=== PATIENT | female | born 1945 | race Caucasian/White ===

== ENCOUNTER 2018-11-24 13:06 | Emergency (ER) | payer OTHER ==
[2018-11-24 16:09] LABS: ADD MAN DIFF? NO
[2018-11-24 16:11] LABS: BASOPHILS % 0.4 % (0.0-2.0); EOSINOPHILS % 0.4 % (0.0-7.0); HEMATOCRIT 44.7 % (37.0-47.0); HEMOGLOBIN 14.4 g/dl (12.0-16.0); LYMPHOCYTES # 1.1 10^3/ul (0.8-2.9); LYMPHOCYTES % 23.1 % (15.0-51.0); MEAN CORPUSCULAR HEMOGLOBIN 28.2 pg (29.0-33.0); MEAN CORPUSCULAR HGB CONC 32.2 g/dl (32.0-37.0); MEAN CORPUSCULAR VOLUME 87.5 fl (82.0-101.0); MEAN PLATELET VOLUME 9.6 fl (7.4-10.4); MONOCYTE # 0.5 10^3/ul (0.3-0.9); MONOCYTES % 9.7 % (0.0-11.0); NEUTROPHIL # 3.1 10^3/ul (1.6-7.5); NEUTROPHILS % 65.8 % (39.0-77.0); PLATELET COUNT 188 10^3/UL (140-415); RED BLOOD COUNT 5.11 10^6/ul (4.20-5.40); RED CELL DISTRIBUTION WIDTH 14.8 % (11.5-14.5)
[2018-11-24 16:11] LABS: WHITE BLOOD COUNT 4.7 10^3/ul (4.8-10.8)
[2018-11-24] MEDS: ONDANSETRON 4 MG INJ IV (16:22)
[2018-11-24] MEDS: OXYCODONE/ACETAMINOPHEN (5/325) TAB PO (16:22)
[2018-11-24] MEDS: SOD CHLORIDE 0.9% 1,000 ML IV (16:23)
[2018-11-24 16:29] LABS: ALANINE AMINOTRANSFERASE 146 IU/L (13-69); ALBUMIN 3.8 g/dl (3.3-4.9); ALBUMIN/GLOBULIN RATIO 1.52; ALKALINE PHOSPHATASE 129 IU/L (42-121); ANION GAP 11 (5-13); ASPARTATE AMINO TRANSFERASE 64 IU/L (15-46); BILIRUBIN,INDIRECT 0.5 mg/dl (0-1.1); BILIRUBIN,TOTAL 0.5 mg/dl (0.2-1.3); BLOOD UREA NITROGEN 22 mg/dl (7-20); CALCIUM 9.3 mg/dl (8.4-10.2); CARBON DIOXIDE 29 mmol/L (21-31); CHLORIDE 97 mmol/L (97-110); CREATININE 0.62 mg/dl (0.44-1.00); LIPASE 100 U/L (23-300); SODIUM 137 mmol/L (135-144); TOTAL PROTEIN 6.3 g/dl (6.1-8.1)
[2018-11-24 16:30] LABS: INR 0.93; PROTIME 12.6 Sec (11.9-14.9)
[2018-11-24 16:31] LABS: GLUCOSE 411 mg/dl (70-220); PARTIAL THROMBOPLASTIN TIME 24.2 Sec (23.0-35.0)
[2018-11-24 16:40] LABS: TROPONIN-I < 0.012 ng/ml (0.000-0.120)
[2018-11-24 17:09] LABS: ADD UMIC YES; UR ASCORBIC ACID NEGATIVE (NEGATIVE); UR BILIRUBIN (Dip) NEGATIVE (NEGATIVE); UR BLOOD (Dip) 1+ mg/dL (NEGATIVE); UR CLARITY CLEAR (CLEAR); UR COLOR YELLOW (YELLOW); UR GLUCOSE (Dip) 3+ mg/dL (NEGATIVE); UR KETONES (Dip) TRACE mg/dL (NEGATIVE); UR LEUKOCYTE ESTERASE (Dip) NEGATIVE Leu/ul (NEGATIVE); UR NITRITE (Dip) NEGATIVE (NEGATIVE); UR RBC 3 /HPF (0-5); UR SPECIFIC GRAVITY (Dip) 1.032 (1.003-1.030); UR TOTAL PROTEIN (Dip) NEGATIVE (NEGATIVE); UR UROBILINOGEN (Dip) NEGATIVE (NEGATIVE); UR WBC 1 /HPF (0-5)
[2018-11-24] MEDS: INSULIN LISPRO 100 UNIT/ML VIAL SC (17:13)
== END 2018-11-24 21:33 | disposition short-term general hospital (02) ==
LOC: E/R 21:33
DX: E11.65 Type 2 diabetes mellitus with hyperglycemia (principal); R32 Unspecified urinary incontinence; D32.9 Benign neoplasm of meninges, unspecified; G93.40 Encephalopathy, unspecified; R40.2142 Coma scale, eyes open, spontaneous, at arrival to emergency department; R40.2252 Coma scale, best verbal response, oriented, at arrival to emergency department; R40.2362 Coma scale, best motor response, obeys commands, at arrival to emergency department; I10 Essential (primary) hypertension; E66.9 Obesity, unspecified; R06.02 Shortness of breath; R93.0 Abnormal findings on diagnostic imaging of skull and head, not elsewhere classified
CPT/HCPCS: 36415; 70450; 71045; 80053; 81001; 82962; 83690; 84484; 85025; 85610; 85730; 87086; 93005; 96372; 99285-25

== ENCOUNTER 2018-12-04 05:44 | Inpatient (IN) | payer OTHER ==
[2018-12-04 06:27] LABS: ADD MAN DIFF? NO
[2018-12-04 06:33] LABS: BASOPHILS % 0.4 % (0.0-2.0); EOSINOPHILS # 0.1 10^3/ul (0.0-0.5); HEMATOCRIT 41.6 % (37.0-47.0); HEMOGLOBIN 13.9 g/dl (12.0-16.0); LYMPHOCYTES # 1.5 10^3/ul (0.8-2.9); LYMPHOCYTES % 28.9 % (15.0-51.0); MEAN CORPUSCULAR HEMOGLOBIN 28.8 pg (29.0-33.0); MEAN CORPUSCULAR HGB CONC 33.4 g/dl (32.0-37.0); MEAN CORPUSCULAR VOLUME 86.1 fl (82.0-101.0); MEAN PLATELET VOLUME 9.8 fl (7.4-10.4); MONOCYTE # 0.7 10^3/ul (0.3-0.9); MONOCYTES % 12.7 % (0.0-11.0); PLATELET COUNT 278 10^3/UL (140-415); RED BLOOD COUNT 4.83 10^6/ul (4.20-5.40); RED CELL DISTRIBUTION WIDTH 14.9 % (11.5-14.5)
[2018-12-04 06:33] LABS: WHITE BLOOD COUNT 5.3 10^3/ul (4.8-10.8)
[2018-12-04 06:47] LABS: PROTIME 12.3 Sec (11.9-14.9)
[2018-12-04 06:48] LABS: PARTIAL THROMBOPLASTIN TIME 26.3 Sec (23.0-35.0)
[2018-12-04 06:50] LABS: ANION GAP 8 (5-13); BLOOD UREA NITROGEN 15 mg/dl (7-20); CALCIUM 9.8 mg/dl (8.4-10.2); CARBON DIOXIDE 34 mmol/L (21-31); CHLORIDE 97 mmol/L (97-110); CREATININE 0.69 mg/dl (0.44-1.00); GLUCOSE 200 mg/dl (70-220); POTASSIUM 3.8 mmol/L (3.5-5.1); SODIUM 139 mmol/L (135-144)
[2018-12-04] MEDS ORDERED: SEVOFLURANE 15 MIN (07:00)
[2018-12-04] MEDS ORDERED: CEFAZOLIN 1 GM INJ ×2 (07:00→14:36)
[2018-12-04] MEDS ORDERED: BUPIVACAINE 0.5% (SDV) 30 ML INJ (07:37)
[2018-12-04] MEDS ORDERED: SODIUM CL BACTERIOSTATIC 30 ML INJ (07:37)
[2018-12-04] MEDS ORDERED: POLYMYXIN/BACITRACIN 1L IRRIG (07:38)
[2018-12-04] MEDS ORDERED: MIDAZOLAM 1 MG/ML 2 ML INJ (07:56)
[2018-12-04] MEDS ORDERED: HEPARIN 1000 UNITS/ML 10 ML INJ (08:10)
[2018-12-04] MEDS ORDERED: MANNITOL 20% 250 ML IV (09:30)
[2018-12-04] MEDS ORDERED: FUROSEMIDE 20 MG INJ (10:30)
[2018-12-04] MEDS ORDERED: DEXAMETHASONE 4 MG/ML 5 ML INJ (10:30)
[2018-12-04] MEDS: SURGIFOAM POWDER 1 GM KIT (11:12)
[2018-12-04] MEDS: HEMOSTATIC MATRIX SYG ZFS ×2 (11:55→15:22)
[2018-12-04] MEDS ORDERED: THROMBIN 5000 UNIT VIAL (13:31)
[2018-12-04] MEDS: NEOMYC/POLYMYX/BACIT 30 GM OINT (15:21)
[2018-12-04] MEDS: POVIDONE IODINE 10% 28.4 GM OINT (15:22)
[2018-12-04] MEDS: BUPIVACAINE 0.5%/EPI (SDV) 30 ML INJ (15:22)
[2018-12-04] MEDS: LIDOCAINE 1% (MPF) 30 ML INJ (15:22)
[2018-12-04] MEDS: THROMBIN 5000 UNIT VIAL ×2 (15:22)
[2018-12-04] MEDS: CEFAZOLIN 1 GM INJ (15:22)
[2018-12-04] MEDS: GELATIN SIZE 100 SPONGE ×2 (15:22)
[2018-12-04] MEDS ORDERED: LIDOCAINE 2% (SDV) 5 ML INJ (15:37)
[2018-12-04] MEDS ORDERED: ETOMIDATE 20 MG INJ (15:37)
[2018-12-04] MEDS ORDERED: ROCURONIUM 50 MG INJ (15:38)
[2018-12-04] MEDS ORDERED: GLYCOPYRROLATE 0.4 MG INJ (15:38)
[2018-12-04] MEDS ORDERED: NEOSTIGMINE 3 MG/3 ML SYRINGE (15:38)
[2018-12-04] MEDS ORDERED: ONDANSETRON 4 MG INJ (15:43)
[2018-12-04] MEDS ORDERED: HYDROCODONE/APAP (5/325) TAB PO (16:00)
[2018-12-04] MEDS ORDERED: LEVETIRACETAM 500 MG (PMX) 100 ML IVPB (16:00)
[2018-12-04] MEDS ORDERED: HYDROmorphONE 0.5 MG/0.5 ML SYG IV (16:00)
[2018-12-04] MEDS ORDERED: traMADol 50 MG TAB PO (16:00)
[2018-12-04] MEDS ORDERED: BISACODYL 10 MG SUPP PR (16:00)
[2018-12-04] MEDS ORDERED: NALOXONE (0.4 MG/ML) INJ IV (16:00)
[2018-12-04] MEDS ORDERED: ONDANSETRON 4 MG INJ IV ×2 (16:00→16:30)
[2018-12-04] MEDS ORDERED: morphine (1 MG/ML) 10ML SYRINGE IV ×2 (16:30)
[2018-12-04] MEDS ORDERED: DIPHENHYDRAMINE 50 MG INJ IV (16:30)
[2018-12-04] MEDS ORDERED: MIDAZOLAM 1 MG/ML 2 ML INJ IV (16:30)
[2018-12-04] MEDS ORDERED: hydrALAzine 20 MG INJ IV (16:30)
[2018-12-04] MEDS ORDERED: LABETALOL HCL 20MG INJ IV (16:30)
[2018-12-04] MEDS ORDERED: METOCLOPRAMIDE 10 MG INJ IV (16:30)
[2018-12-04] MEDS ORDERED: MEPERIDINE 25 MG INJ IV (16:30)
[2018-12-04] MEDS: DEXAMETHASONE 4 MG/ML 1 ML INJ IV ×2 (17:19→23:41)
[2018-12-04] MEDS ORDERED: GLUCOSE GEL 15 GRAM TUBE PO ×2 (18:00)
[2018-12-04] MEDS ORDERED: DEXTROSE 50% 50 ML SYRINGE IV ×2 (18:00)
[2018-12-04] MEDS ORDERED: GLUCAGON 1 MG INJ IM (18:00)
[2018-12-04] MEDS ORDERED: GLUCOSE GEL 15 GRAM TUBE BUCCAL (18:00)
[2018-12-04] MEDS: NS + KCL 20 MEQ 1,000 ML IV (18:20)
[2018-12-04] MEDS: ATORVASTATIN 40 MG TAB PO (20:54)
[2018-12-04] MEDS: LEVETIRACETAM IV 250 MG in DEXTROSE 5% 100 ML IV (20:54)
[2018-12-04] MEDS: DOCUSATE SODIUM 100 MG CAP PO (20:54)
[2018-12-04] MEDS ORDERED: LEVETIRACETAM IV 750 MG in DEXTROSE 5% 100 ML IVPB (21:00)
[2018-12-04] MEDS: NEOMYC/POLYMYX/BACIT 30 GM OINT TOP (21:00)
[2018-12-04] MEDS: INSULIN ASPART [NOVOLOG] 3 ML PEN SC (21:01)
[2018-12-04] MEDS: INSULIN GLARGINE [LANTus] (100 UNITS/ML) SYG SC (21:03)
[2018-12-04] MEDS: CEFAZOLIN 1 GM/50 ML (PMX) 50 ML IVPB (21:26)
[2018-12-05] MEDS: NS + KCL 20 MEQ 1,000 ML IV (03:00)
[2018-12-05 05:24] LABS: ADD MAN DIFF? NO
[2018-12-05 05:30] LABS: BASOPHILS % 0.1 % (0.0-2.0); HEMATOCRIT 35.9 % (37.0-47.0); HEMOGLOBIN 11.6 g/dl (12.0-16.0); LYMPHOCYTES # 0.7 10^3/ul (0.8-2.9); MEAN CORPUSCULAR HEMOGLOBIN 28.2 pg (29.0-33.0); MEAN CORPUSCULAR HGB CONC 32.3 g/dl (32.0-37.0); MEAN CORPUSCULAR VOLUME 87.1 fl (82.0-101.0); MEAN PLATELET VOLUME 10.4 fl (7.4-10.4); MONOCYTE # 0.6 10^3/ul (0.3-0.9); MONOCYTES % 7.1 % (0.0-11.0); NEUTROPHIL # 7.1 10^3/ul (1.6-7.5); NEUTROPHILS % 84.4 % (39.0-77.0); PLATELET COUNT 209 10^3/UL (140-415); RED BLOOD COUNT 4.12 10^6/ul (4.20-5.40)
[2018-12-05 05:30] LABS: WHITE BLOOD COUNT 8.5 10^3/ul (4.8-10.8)
[2018-12-05] MEDS: PANTOPRAZOLE 40 MG INJ IV (05:54)
[2018-12-05] MEDS: DEXAMETHASONE 4 MG/ML 1 ML INJ IV ×3 (05:54→18:34)
[2018-12-05] MEDS: CEFAZOLIN 1 GM/50 ML (PMX) 50 ML IVPB ×3 (05:55→20:45)
[2018-12-05 05:56] LABS: ANION GAP 5 (5-13); BLOOD UREA NITROGEN 10 mg/dl (7-20); CALCIUM 8.1 mg/dl (8.4-10.2); CARBON DIOXIDE 28 mmol/L (21-31); CHLORIDE 106 mmol/L (97-110); CREATININE 0.57 mg/dl (0.44-1.00); GLUCOSE 268 mg/dl (70-220); POTASSIUM 3.5 mmol/L (3.5-5.1); SODIUM 139 mmol/L (135-144)
[2018-12-05] MEDS: INSULIN ASPART [NOVOLOG] 3 ML PEN SC ×4 (07:51→20:41)
[2018-12-05] MEDS: ACETAMINOPHEN 325 MG TAB PO (08:05)
[2018-12-05] MEDS: LOSARTAN 50 MG TAB PO (08:05)
[2018-12-05] MEDS: HYDROCHLOROTHIAZIDE 12.5 MG CAP PO (08:05)
[2018-12-05] MEDS: DOCUSATE SODIUM 100 MG CAP PO ×2 (08:06→20:35)
[2018-12-05] MEDS: AMLODIPINE 10 MG TAB PO (08:06)
[2018-12-05] MEDS: NEOMYC/POLYMYX/BACIT 30 GM OINT TOP ×2 (08:07→20:48)
[2018-12-05] MEDS ORDERED: NON-FORMULARY/PATIENT OWN MED (Losartan-Hydrochlorothiazide (Losartan-HCTZ) 1 TAB) PO (09:00)
[2018-12-05] MEDS: LEVETIRACETAM IV 250 MG in DEXTROSE 5% 100 ML IV ×2 (09:45→22:25)
[2018-12-05] MEDS ORDERED: INFLUENZA VIRUS VACCINE 0.5 ML (DISPENSING) IM* (10:00)
[2018-12-05] MEDS: ATORVASTATIN 40 MG TAB PO (20:35)
[2018-12-05] MEDS: INSULIN GLARGINE [LANTus] (100 UNITS/ML) SYG SC (20:40)
[2018-12-06] MEDS: DEXAMETHASONE 4 MG/ML 1 ML INJ IV ×4 (00:02→17:44)
[2018-12-06] MEDS: CEFAZOLIN 1 GM/50 ML (PMX) 50 ML IVPB ×2 (05:56→14:30)
[2018-12-06] MEDS: PANTOPRAZOLE 40 MG INJ IV (05:56)
[2018-12-06] MEDS: DOCUSATE SODIUM 100 MG CAP PO ×2 (08:36→21:00)
[2018-12-06] MEDS: INSULIN ASPART [NOVOLOG] 3 ML PEN SC ×4 (08:37→21:06)
[2018-12-06] MEDS: HYDROCHLOROTHIAZIDE 12.5 MG CAP PO (08:38)
[2018-12-06] MEDS: AMLODIPINE 10 MG TAB PO (08:39)
[2018-12-06] MEDS: LOSARTAN 50 MG TAB PO (08:39)
[2018-12-06] MEDS: NEOMYC/POLYMYX/BACIT 30 GM OINT TOP ×2 (09:00→21:00)
[2018-12-06] MEDS: LEVETIRACETAM IV 250 MG in DEXTROSE 5% 100 ML IV ×2 (09:00→22:08)
[2018-12-06] MEDS: ATORVASTATIN 40 MG TAB PO (21:00)
[2018-12-06] MEDS: INSULIN GLARGINE [LANTus] (100 UNITS/ML) SYG SC (21:05)
[2018-12-07] MEDS: DEXAMETHASONE 4 MG/ML 1 ML INJ IV ×3 (00:28→12:47)
[2018-12-07 05:14] LABS: ADD MAN DIFF? NO
[2018-12-07 05:20] LABS: BASOPHILS % 0.1 % (0.0-2.0); HEMATOCRIT 34.8 % (37.0-47.0); HEMOGLOBIN 11.4 g/dl (12.0-16.0); LYMPHOCYTES # 0.7 10^3/ul (0.8-2.9); LYMPHOCYTES % 9.6 % (15.0-51.0); MEAN CORPUSCULAR HEMOGLOBIN 28.4 pg (29.0-33.0); MEAN CORPUSCULAR HGB CONC 32.8 g/dl (32.0-37.0); MEAN CORPUSCULAR VOLUME 86.6 fl (82.0-101.0); MEAN PLATELET VOLUME 10.5 fl (7.4-10.4); MONOCYTE # 0.5 10^3/ul (0.3-0.9); MONOCYTES % 7.3 % (0.0-11.0); NEUTROPHIL # 5.7 10^3/ul (1.6-7.5); PLATELET COUNT 177 10^3/UL (140-415); RED BLOOD COUNT 4.02 10^6/ul (4.20-5.40); RED CELL DISTRIBUTION WIDTH 14.8 % (11.5-14.5)
[2018-12-07 05:42] LABS: ALANINE AMINOTRANSFERASE 47 IU/L (13-69); ALBUMIN 3.1 g/dl (3.3-4.9); ALKALINE PHOSPHATASE 84 IU/L (42-121); ANION GAP 8 (5-13); ASPARTATE AMINO TRANSFERASE 21 IU/L (15-46); BILIRUBIN,INDIRECT 0.3 mg/dl (0-1.1); BILIRUBIN,TOTAL 0.3 mg/dl (0.2-1.3); BLOOD UREA NITROGEN 18 mg/dl (7-20); CALCIUM 9.1 mg/dl (8.4-10.2); CARBON DIOXIDE 32 mmol/L (21-31); CHLORIDE 100 mmol/L (97-110); CREATININE 0.57 mg/dl (0.44-1.00); GLUCOSE 320 mg/dl (70-220); POTASSIUM 3.9 mmol/L (3.5-5.1); SODIUM 140 mmol/L (135-144); TOTAL PROTEIN 5.9 g/dl (6.1-8.1)
[2018-12-07] MEDS: PANTOPRAZOLE 40 MG INJ IV (06:41)
[2018-12-07] MEDS: HYDROCHLOROTHIAZIDE 12.5 MG CAP PO (08:42)
[2018-12-07] MEDS: DOCUSATE SODIUM 100 MG CAP PO (08:43)
[2018-12-07] MEDS: LOSARTAN 50 MG TAB PO (08:43)
[2018-12-07] MEDS: AMLODIPINE 10 MG TAB PO (08:44)
[2018-12-07] MEDS: NEOMYC/POLYMYX/BACIT 30 GM OINT TOP (08:44)
[2018-12-07] MEDS: INSULIN ASPART [NOVOLOG] 3 ML PEN SC ×2 (08:46→12:51)
[2018-12-07] MEDS: LEVETIRACETAM IV 250 MG in DEXTROSE 5% 100 ML IV (10:23)
[2018-12-07] MEDS: ACETAMINOPHEN 325 MG TAB PO (14:53)
== END 2018-12-07 15:15 | DRG 26 ==
LOC: REC 05:44 → MS1 12-05 14:27 → ICU 16:18
PROC: 00B20ZZ Excision of Dura Mater, Open Approach (ICD-10-PCS; principal; 2018-12-04 08:23)
PROC: 0JB00ZZ Excision of Scalp Subcutaneous Tissue and Fascia, Open Approach (ICD-10-PCS; 2018-12-04 08:23)
PROC: 0NU70JZ Supplement Occipital Bone with Synthetic Substitute, Open Approach (ICD-10-PCS; 2018-12-04 08:23)
PROC: 0NU Head and Facial Bones, Supplement (ICD-10-PCS; 2018-12-04 08:23)
PROC: 0NU Head and Facial Bones, Supplement (ICD-10-PCS; 2018-12-04 08:23)
PROC: 8E09XBH Computer Assisted Procedure of Head and Neck Region, With Magnetic Resonance Imaging (ICD-10-PCS; 2018-12-04 08:23)
DX: D32.0 Benign neoplasm of cerebral meninges (principal); G81.91 Hemiplegia, unspecified affecting right dominant side; D23.4 Other benign neoplasm of skin of scalp and neck; E11.51 Type 2 diabetes mellitus with diabetic peripheral angiopathy without gangrene; E66.01 Morbid (severe) obesity due to excess calories; E78.5 Hyperlipidemia, unspecified; I10 Essential (primary) hypertension; M19.90 Unspecified osteoarthritis, unspecified site; R09.02 Hypoxemia; Z68.37 Body mass index [BMI] 37.0-37.9, adult
CPT/HCPCS: 70450; 70553; 71045; 80048; 80053; 82962; 83735; 84100; 85025; 85610; 85730; 86850; 86900; 86901; 86920; 87081; 88307; 88311; 88331; 88341; 88342; 97116; 97162; 97530

== ENCOUNTER 2018-12-15 14:45 | Emergency (ER) | payer OTHER ==
[2018-12-15] MEDS ORDERED: LORAZEPAM 2 MG INJ (16:08)
[2018-12-15 16:27] LABS: ADD MAN DIFF? NO
[2018-12-15 16:31] LABS: BASOPHILS % 0.3 % (0.0-2.0); EOSINOPHILS % 0.2 % (0.0-7.0); HEMATOCRIT 40.8 % (37.0-47.0); HEMOGLOBIN 13.2 g/dl (12.0-16.0); LYMPHOCYTES # 1.6 10^3/ul (0.8-2.9); LYMPHOCYTES % 15.8 % (15.0-51.0); MEAN CORPUSCULAR HEMOGLOBIN 28.3 pg (29.0-33.0); MEAN CORPUSCULAR HGB CONC 32.4 g/dl (32.0-37.0); MEAN CORPUSCULAR VOLUME 87.4 fl (82.0-101.0); MEAN PLATELET VOLUME 10.3 fl (7.4-10.4); MONOCYTE # 0.9 10^3/ul (0.3-0.9); MONOCYTES % 8.7 % (0.0-11.0); NEUTROPHIL # 7.2 10^3/ul (1.6-7.5); NEUTROPHILS % 73.6 % (39.0-77.0); NUCLEATED RED BLOOD CELLS% 0.2 /100WBC (0.0-0.0); PLATELET COUNT 244 10^3/UL (140-415); RED BLOOD COUNT 4.67 10^6/ul (4.20-5.40); RED CELL DISTRIBUTION WIDTH 14.8 % (11.5-14.5)
[2018-12-15 16:31] LABS: WHITE BLOOD COUNT 9.8 10^3/ul (4.8-10.8)
[2018-12-15 16:51] LABS: ANION GAP 9 (5-13); BLOOD UREA NITROGEN 23 mg/dl (7-20); CALCIUM 9.5 mg/dl (8.4-10.2); CARBON DIOXIDE 28 mmol/L (21-31); CHLORIDE 99 mmol/L (97-110); CREATININE 0.66 mg/dl (0.44-1.00); GLUCOSE 254 mg/dl (70-220); POTASSIUM 4.2 mmol/L (3.5-5.1); SODIUM 136 mmol/L (135-144)
[2018-12-15 17:05] LABS: INR 0.92; PROTIME 12.5 Sec (11.9-14.9)
[2018-12-15 17:06] LABS: PARTIAL THROMBOPLASTIN TIME 24.9 Sec (23.0-35.0)
[2018-12-15] MEDS: SOD CHLORIDE 0.9% 100 ML (17:18)
[2018-12-15] MEDS: IOHEXOL 300MG/ML 150 ML BTL (17:18)
== END 2018-12-15 18:44 | disposition home or self-care (01) ==
LOC: E/R 14:45
DX: G89.18 Other acute postprocedural pain (principal); E11.9 Type 2 diabetes mellitus without complications; I10 Essential (primary) hypertension; R93.0 Abnormal findings on diagnostic imaging of skull and head, not elsewhere classified; Z79.4 Long term (current) use of insulin
CPT/HCPCS: 70470; 80048; 85025; 85610; 85730; 99285-25